=== PATIENT | male | born 1950 | race African-American/Black ===

== ENCOUNTER 2017-06-09 01:33 | Emergency (ER) | payer OTHER, BC ==
[~2017-06-09] VITALS: Ht 180.3 cm; Wt 99.8 kg
[2017-06-09] MEDS ORDERED: TRAMADOL 50 MG50 MG PO (01:57)
[2017-06-09] MEDS ORDERED: NAPROSYN500 MG PO (01:57)
[2017-06-09] MEDS ORDERED: ROBAXIN500 MG PO (01:57)
== END 2017-06-09 02:15 | disposition home or self-care (01) ==
LOC: ER 01:33
DX: M43.6 Torticollis (principal)